=== PATIENT | female | born 1930 | race Caucasian/White ===

== ENCOUNTER 2018-07-12 19:02 | Observation (INO) ==
--- NOTE | 2018-07-12 19:09 | Emergency Department Note ---
ED Disposition Condition on Discharge: Fair - Critical Care Critical Care Time: No <Toña Gasca - Last Filed: 07/12/18 19:56> <Hesham Veras - Last Filed: 07/12/18 21:19> Clinical Impression: DNR (do not resuscitate) Altered mental status Qualifiers: Altered mental status type: unspecified Qualified Code(s): R41.82 - Altered mental status, unspecified Disposition: Admitted as Observation Referrals: Hesham Veras MD [Primary Care Provider] - Attestation: On 07/12/18, the high probability of a clinically significant, sudden or life threatening deterioration of the following system(s) required my full and direct attention, intervention and personal management. The time I documented below is in addition to time spent performing reported procedures but includes the following listed in this critical care notation. Medical Decision Making - Caio Inquiry Pt receiving controlled substance: No Caio was queried for this patient: No - Lab Data Result diagrams: 07/12/18 18:50 07/12/18 18:50 - Radiology Data #1 Image(s): Chest Image Reviewed: Yes I reviewed the patient's radiology image Preliminary Findings: Normal/NAD <MagalismarlonToña - Last Filed: 07/12/18 19:56> - Lab Data Lab results reviewed: Yes: I reviewed the patient's lab results. Result diagrams: 07/12/18 18:50 07/12/18 18:50 - CT Data CT Scan: Head Time Received: 21:[address] Reviewed: Yes: I have viewed the radiologist's interpretation Preliminary Findings: Normal/NAD - ECG Data Tracing #1 I reviewed this ECG and interpreted as documented below: Normal Sinus Rhythm: Yes Ischemic changes: non-specific ST-T wave changes <Hesham Veras - Last Filed: 07/12/18 21:19> Vital Signs: 07/12/18 19:03 07/12/18 19:29 07/12/18 19:50 Temperature 97.5 F L 98.0 F Temperature Source Oral Rectal Pulse Rate [Left Radial] 64 57 L 56 L Respiratory Rate 16 14 17 Blood Pressure [Right Arm] 124/74 125/73 119/71 Blood Pressure Mean [Right Arm] 90 90 87 Blood Pressure Source [Right Arm] Automatic Cuff Blood Pressure Position [Right Arm] Supine 02 Sat by Pulse Oximetry 94 L 100 100 Oxygen Delivery Method Room Air Nasal Cannula Room Air Oxygen Flow Rate (LPM) 2 07/12/18 20:03 07/12/18 20:30 07/12/18 21:00 Temperature Temperature Source Pulse Rate [Left Radial] 53 L 52 L 54 L Respiratory Rate 15 15 15 Blood Pressure [Right Arm] 138/67 137/79 123/57 L Blood Pressure Mean [Right Arm] 90 98 79 Blood Pressure Source [Right Arm] Automatic Cuff Blood Pressure Position [Right Arm] Supine 02 Sat by Pulse Oximetry 100 100 99 Oxygen Delivery Method Nasal Cannula Nasal Cannula Oxygen Flow Rate (LPM) 2 2 - Lab Data Lab Results 07/12/18 18:50: WBC 5.1, RBC 3.95 L, Hgb 11.7 L, Hct 36.3 L, MCV 92.0, MCH 29.7, MCHC 32.3, RDW 14.6, Plt Count 161, MPV 7.0 L, Neut % (Auto) 49.3, Lymph % (Auto) 28.7, [place] % (Auto) 6.9, Eos % (Auto) 14.7 H, Baso % (Auto) 0.4, Neut # (Auto) 2.5, Lymph # (Auto) 1.5, [place] # (Auto) 0.4, Eos # (Auto) 0.8 H, Baso # (Auto) 0.0 07/12/18 18:50: Sodium 139, Potassium 4.5, Chloride 104, Carbon Dioxide 30, Anion Gap 9.5, BUN 20 H, Creatinine 0.66, Estimated Creat Clear 38, Estimated GFR 85, Est GFR ( Amer) 102, Glucose 90, Calcium 8.6, Total Bilirubin 0.4, AST 28, ALT 24, Alkaline Phosphatase 90, Total Creatine Kinase 57, CK-MB (CK-2) 0.5, CK-MB (CK-2) Rel Index 0.9, Troponin I < 0.02, Total Protein 6.6, Albumin 2.9 L, Globulin 3.7 H, Albumin/Globulin Ratio 0.8 L 07/12/18 19:18: Urine Color Yellow, Urine Appearance Clear, Urine pH 7.0, Ur Specific [place] 1.015, Urine Protein Negative, Urine Glucose (UA) Negative, Urine Ketones Negative, Urine Blood Trace-i, Urine Nitrate Negative, Urine Bilirubin Negative, Urine Urobilinogen 1.0, Ur Leukocyte Esterase Negative, Urine RBC 3-5, Urine WBC None, Ur Squamous Epith Cells Occasional, Urine Bacteria Trace 07/12/18 19:18: Urine Opiates Screen Positive H, Urine Methadone Screen Negative, Ur Barbituates Screen Negative, Ur Phencyclidine Scrn Negative, Ur Amphetamines Screen Negative, U Benzodiazepines Scrn Negative, Urine Cocaine Screen Negative, U Marijuana (THC) Screen Negative Orders (Tests/Meds): ED MEDICATIONS Discontinued Medications Generic Name Dose Route Start Last Admin Trade Name Freq PRN Reason Stop Dose Admin Sodium Chloride 1,000 mls @ 999 mls/hr 07/12/18 19:30 07/12/18 20:01 Sod Chlor 0.9% 1000ml Bag IV 07/12/18 20:30 999 mls/hr .[id number] VIANNEY Administration ORDERS Category Date Time Status CT head/brain wo con Stat Cat Scan 07/12/18 19:10 Taken XR chest portable Stat Exams 07/12/18 19:10 Taken Lactic Acid Stat Lab 07/12/18 21:16 Ordered Urinalysis and Microscopic Stat Lab 07/12/18 19:18 Ordered Blood Culture Stat Micro 07/12/18 21:16 Ordered Urine Culture(cathed specimen) Stat Micro 07/12/18 21:16 Ordered ECG Request by /Jackson Stat Y 07/12/18 19:10 Ordered Medical Decision Narrative: Chest x-ray was negative for acute infiltrates. Final CT scan report and labs are pending. I discussed with incoming physician Dr. Veras who is her primary care physician at the skilled nursing, he will follow-up and make a final disposition. (Toña Gasca) Altered Mental Status HPI - History of Present Illness complaint: decreased responsiveness Onset (ago): hour(s) Timing confirmed by: caregiver Severity: moderate Associated symptoms: denies other symptoms <Toña Gasca - Last Filed: 07/12/18 19:56> <Hesham Veras - Last Filed: 07/12/18 21:19> - General Stated Complaint: Unresponsive Time Seen by Provider: 07/12/18 19:06 - History of Present Illness HPI narrative: 87 years old white female with history of dementia, epilepsy, on Keppra and multiple medical problems , she is DNR [facility] resident. July 02 she was positive for UTI started on cephalexin. Today she is lethargic decreased activity and alertness, [facility] was contacted and brought the patient for evaluation. She has no fever vital signs are within normal limits. (Toña Gasca) - Related Data Home Medications Medication Instructions Recorded Confirmed metoprolol tartrate 25 mg tablet 25 mg PO DAILY 10/26/17 07/12/18 thyroid (pork) 30 mg tablet 30 mg PO ONCE 10/26/17 07/12/18 hydrocodone 5 mg-acetaminophen 325 1 tab PO BID tab 11/22/17 07/12/18 mg tablet Memantine HCl [Namenda] 10 mg PO BID 02/25/18 07/12/18 levETIRAcetam [Keppra 500mg tablet] 500 mg PO DAILY 02/25/18 07/12/18 Nystatin [Nystatin Cr 100,000 1 applicatio TOPICAL TID 04/27/18 07/12/18 Units/GM 30GM] acetaminophen 500 mg capsule 500 mg PO Q6H PRN 06/28/18 07/12/18 haloperidol 2 mg tablet 2 mg PO TID tab 06/28/18 07/12/18 lactulose 10 gram/15 mL oral 20 g PO DAILY PRN ml 06/28/18 07/12/18 solution loratadine 10 mg tablet 10 mg PO DAILY 06/28/18 07/12/18 olanzapine 2.5 mg tablet 2.5 mg PO DAILY 06/28/18 07/12/18 polyethylene glycol 3350 17 gram 17 g PO DAILY 06/28/18 07/12/18 oral powder packet cephALEXin [cephALEXin 500mg 500 mg PO BID 07/12/18 07/12/18 capsule] Allergies Allergy/AdvReac Type Severity Reaction Status Date / Time chocolate flavor Allergy Intermediate I-ITCHING Verified 07/12/18 19:30 [From CHOCOLATE (FOOD/DRUG)] phenytoin [From Dilantin] Allergy Mild Verified 07/12/18 19:30 naproxen Allergy Unknown Verified 07/12/18 19:30 Penicillins Allergy Unknown Verified 07/12/18 19:30 From CHOCOLATE (FOOD/DRUG) Allergy Intermediate I-ITCHING Uncoded 06/28/18 14:15 [facility] History I have reviewed the patient's past medical history: Yes (I did review her skilled nursing records.) Medical History: Denies:: Cancer, Diabetes Mellitus Type 1, Diabetes Mellitus Type 2, MRSA Other Surgeries: Yes: Hysterectomy-Total, Other (goider removed) Amputation: No Fractures: Yes - Social History Smoking Status: Never smoker Alcohol Intake: never Substance Use Type: denies use Occupational Status: retired Housing: skilled nursing Family Hx:: Unable to obtain <CamposToña Last Filed: 07/12/18 19:56> ROS Obtained: Yes All systems reviewed & no additional complaints <CamposToña Filed: 07/12/18 19:56> Physical Exam - General General appearance: in no apparent distress, lethargic - Head Head exam: atraumatic, normocephalic, normal inspection - Eye Eye exam: Present: normal appearance, PERRL, EOMI - ENT ENT exam: Present: normal exam, normal oropharynx, mucous membranes moist, TM's normal bilaterally, normal external ear exam - Neck Neck exam: Present: normal inspection, full ROM, trachea midline. Absent: tenderness, meningismus, lymphadenopathy - Chest Chest inspection: Present: normal inspection, symmetric chest wall rise. Absent: tenderness - Respiratory Respiratory exam: Present: normal lung sounds bilaterally. Absent: respiratory distress - Cardiovascular Cardiovascular exam: Present: regular rate, normal rhythm, normal heart sounds. Absent: JVD - Abdominal Exam Abdominal exam: Present: soft, normal bowel sounds. Absent: distention, tenderness, guarding, rebound, rigidity - Extremities Exam Extremities exam: Present: normal inspection, full ROM, normal capillary refill. Absent: tenderness, calf tenderness - Back Exam Back exam: Present: normal inspection. Absent: tenderness, vertebral tenderness - Neurological Exam Neurological exam: Present: CN II-XII intact, motor sensory deficit, reflexes normal - Psychiatric Psychiatric exam: Present: normal affect, normal mood - Skin Skin exam: Present: warm, dry, intact, normal color - Lymphatic Lymphatic Findings: no adenopathy <MagalismarlonToña Filed: 07/12/18 19:56>
[2018-07-12 19:23] LABS: Basophils % 0.4 % (0.1-2.0); Eosinophils # 0.8 K/mm3 (0.0-0.4); Eosinophils % 14.7 % (0.1-12.0); Hematocrit 36.3 % (37.0-47.0); Hemoglobin 11.7 g/dL (12.2-16.2); Lymphocytes # 1.5 K/mm3 (0.7-4.5); Lymphocytes % 28.7 K/mm3 (10-50); Mean Corpuscular HGB Conc 32.3 g/dL (31.8-35.4); Mean Corpuscular Hemoglobin 29.7 pg (27.0-31.2); Monocytes # 0.4 K/mm3 (0.1-1.0); Monocytes % 6.9 % (1.7-9.3); Neutrophils # 2.5 K/mm3 (1.8-7.8); Neutrophils % 49.3 % (37.0-80.0); Platelet Count 161 K/mm3 (142-424); Red Blood Count 3.95 M/mm3 (4.20-5.40); Red Cell Distribution Width 14.6 % (11.5-17.5); White Blood Count 5.1 K/mm3 (4.8-10.8)
[2018-07-12 19:52] LABS: Alanine Aminotransferase 24 U/L (12-78); Albumin Level 2.9 gm/dL (3.4-5.0); Albumin/Globulin Ratio 0.8 (1.1-1.8); Alkaline Phosphatase 90 U/L (46-116); Anion Gap 9.5 mEq/L (5-15); Bilirubin,Total 0.4 mg/dL (0.2-1.0); Blood Urea Nitrogen 20 mg/dL (7-18); Calcium 8.6 mg/dL (8.5-10.1); Carbon Dioxide 30 mmol/L (21.0-32.0); Chloride 104 mmol/L (98-107); Creatine Kinase 57 U/L (26-192); Globulin 3.7 gm/dl (1.3-3.2); Glucose 90 mg/dL (74-106); Sodium 139 mmol/L (136-145); Total Protein,Serum 6.6 gm/dL (6.4-8.2)
[2018-07-12 19:54] LABS: Potassium 4.5 mmoL/L (3.5-5.1)
[2018-07-12 19:55] LABS: Aspartate Amino Transferase 28 U/L (15-37)
[2018-07-12 20:07] LABS: Microscopic, Urine URINE MICROSCOPIC (MICROSCOPIC)
[2018-07-12 20:10] LABS: Appearance,Urine CLEAR (Clear); Bilirubin,Urine Negative (Negative); Blood, Urine TRACE-I (Negative); Color,Urine YELLOW (Yellow); Glucose,Urine (UA) Negative (Negative); Ketones,Urine Negative (Negative); Leukocyte Esterase,Urine Negative (Negative); Protein,Urine Negative (Negative); Specific Gravity, Urine 1.015 (1.005-1.030)
[2018-07-12 20:17] LABS: Amphetamine/Metha Screen,Urine Negative ng/mL (<1000); Barbiturates Screen,Urine Negative ng/mL (<200); Benzodiazepines Screen,Urine Negative ng/mL (<200); Cannabinoid Screen,Urine Negative ng/mL (<50); Cocaine Screen,Urine Negative ng/mL (<300); Methadone Screen,Urine Negative ng/mL (<300); Opiate Screen,Urine Positive ng/mL (<300); Phencyclidine Screen,Urine Negative ng/mL (<25)
[2018-07-12 20:25] LABS: Bacteria,Urine Trace /lpf; Squamous Epithelial Cell,Urine Occasional #/hpf (0-5)
[2018-07-12 22:00] LABS: T4 (Thyroxine) 6.3 ug/dl (4.7-13.3); Thyroid Stimulating Hormone 3.96 uIU/ml (0.358-3.740)
[2018-07-13 06:59] LABS: Basophils % 0.8 % (0.1-2.0); Eosinophils # 0.7 K/mm3 (0.0-0.4); Eosinophils % 15.3 % (0.1-12.0); Hematocrit 34.8 % (37.0-47.0); Hemoglobin 11.2 g/dL (12.2-16.2); Lymphocytes # 1.2 K/mm3 (0.7-4.5); Lymphocytes % 25.9 K/mm3 (10-50); Mean Corpuscular Hemoglobin 29.8 pg (27.0-31.2); Mean Platelet Volume 6.5 fl (7.4-10.4); Monocytes # 0.3 K/mm3 (0.1-1.0); Monocytes % 6.4 % (1.7-9.3); Neutrophils # 2.5 K/mm3 (1.8-7.8); Neutrophils % 51.7 % (37.0-80.0); Platelet Count 139 K/mm3 (142-424); Red Blood Count 3.74 M/mm3 (4.20-5.40); Red Cell Distribution Width 14.7 % (11.5-17.5); White Blood Count 4.8 K/mm3 (4.8-10.8)
[2018-07-13 07:08] LABS: Anion Gap 8.9 mEq/L (5-15); Calcium 8.2 mg/dL (8.5-10.1); Potassium 3.9 mmoL/L (3.5-5.1)
--- NOTE | 2018-07-13 07:33 | Pharmacy Consult Notes ---
[facility] Pharmacy VTE Monitoring - Patient Demographics Admission date: 07/12/18 Report Date: 07/13/18 Time: 07:33 Allergies/Adverse Reactions: Patient Allergies chocolate flavor [From CHOCOLATE (FOOD/DRUG)] Allergy (Intermediate, Verified 07/12/18 19:30) I-ITCHING phenytoin [From Dilantin] Allergy (Mild, Verified 07/13/18 07:28) UNKNOWN naproxen Allergy (Unknown, Verified 07/13/18 07:28) UNKNOWN Penicillins Allergy (Unknown, Verified 07/13/18 07:28) UNKNOWN Height: 1.7 m Weight: 55.423 kg Patient Problems: Current Active Problems Altered mental status (Acute) DNR (do not resuscitate) (Acute) - VTE Risk Labs: VTE Related Lab Results Hgb 11.2 g/dL (12.2-16.2) L 07/13/18 06:40 Hct 34.8 % (37.0-47.0) L 07/13/18 06:40 Plt Count 139 K/mm3 (142-424) L 07/13/18 06:40 BUN 24 mg/dL (7-18) H 07/13/18 06:40 Creatinine 0.65 mg/dL (0.55-1.02) 07/13/18 06:40 Estimated Creat Clear 34 mL/min (0-300) 07/13/18 06:40 VTE Score: 4 VTE Risk Level: Low Risk - Prophylaxis VTE Prophylaxis Ordered?: Yes Types of VTE Prophylaxis: TEDS Knee High Location of Applied Device: Bilateral Lower Extremeties - VTE Diagnosis Confirmed Treatment or plan recommended: Continue Current Treatment
--- NOTE | 2018-07-13 13:46 | H&P/Discharge Summary ---
General - General Admission date:: 07/12/18 Discharge date: 07/13/18 *Admission Date: 07/12/18 *Chief complaint: change in mental status *History of present illness: this elderly wf was sent from [facility] with altered mental status and was seen in the ed with no def dx but was felt to be multifactorial and possibly medication related - no fever or trauma and no evid of focal cva or mi - after discussion with family and review of tests she was admitted - 7 years old white female with history of dementia, epilepsy, on Keppra and multiple medical problems , she is DNR [facility] resident. July 02 she was positive for UTI started on cephalexin. Today she is lethargic decreased activity and alertness, [facility] was contacted and brought the patient for evaluation. She has no fever vital signs are within normal limits. (Toña Gasca) [facility] History I have reviewed the patient's past medical history: Yes Medical History: Denies:: Cancer, Diabetes Mellitus Type 1, Diabetes Mellitus Type 2, MRSA Other Medical History: Reports: Cataracts Other Surgeries: Yes: Hysterectomy-Total, Other (goider removed) Amputation: No Fractures: Yes - *Social History Smoking Status: Never smoker Alcohol Intake: never Substance Use Type: denies use Occupational Status: retired Housing: [facility] Household Members: none - Psychiatric History Expresses thoughts of harming self/others: None Suicide Plan Description: No Plan *Family Hx:: Unable to obtain Review of Systems - Review of Systems Review of systems:: pertinent systems reviewed and negative unless documented below - Constitutional Reports malaise, Denies fever(s) - Eyes Denies change in vision - ENT Denies tongue swelling - *Cardiovascular Denies chest pain at rest - *Respiratory Denies cough - *Gastrointestinal Denies abdominal pain, Denies vomiting - *Genitourinary Denies blood in urine - *Musculoskeletal Reports joint pain, Reports neck pain - Integumentary/Breasts Denies rash - *Neurologic Reports confusion, Denies seizure-like activity - Psychiatric Reports confusion Exam Vital signs and Labs for Last 24 Hours: Temp Pulse Resp BP Pulse Ox 97.6 F 57 L 12 122/72 96 07/13/18 07:44 07/13/18 07:44 07/13/18 07:44 07/13/18 07:44 07/13/18 07:44 Laboratory Results - last 24 hr 07/12/18 18:50: WBC 5.1, RBC 3.95 L, Hgb 11.7 L, Hct 36.3 L, MCV 92.0, MCH 29.7, MCHC 32.3, RDW 14.6, Plt Count 161, MPV 7.0 L, Neut % (Auto) 49.3, Lymph % (Auto) 28.7, [place] % (Auto) 6.9, Eos % (Auto) 14.7 H, Baso % (Auto) 0.4, Neut # (Auto) 2.5, Lymph # (Auto) 1.5, [place] # (Auto) 0.4, Eos # (Auto) 0.8 H, Baso # (Auto) 0.0 07/12/18 18:50: Sodium 139, Potassium 4.5, Chloride 104, Carbon Dioxide 30, Anion Gap 9.5, BUN 20 H, Creatinine 0.66, Estimated Creat Clear 38, Estimated GFR 85, Est GFR ( Amer) 102, Glucose 90, Calcium 8.6, Total Bilirubin 0.4, AST 28, ALT 24, Alkaline Phosphatase 90, Total Creatine Kinase 57, CK-MB (CK-2) 0.5, CK-MB (CK-2) Rel Index 0.9, Troponin I < 0.02, Total Protein 6.6, Albumin 2.9 L, Globulin 3.7 H, Albumin/Globulin Ratio 0.8 L 07/12/18 19:15: TSH 3.96 H, Thyroxine (T4) 6.3 07/12/18 19:18: Urine Color Yellow, Urine Appearance Clear, Urine pH 7.0, Ur Specific [place] 1.015, Urine Protein Negative, Urine Glucose (UA) Negative, Urine Ketones Negative, Urine Blood Trace-i, Urine Nitrate Negative, Urine Bilirubin Negative, Urine Urobilinogen 1.0, Ur Leukocyte Esterase Negative, Urine RBC 3-5, Urine WBC None, Ur Squamous Epith Cells Occasional, Urine Bacteria Trace 07/12/18 19:18: Urine Opiates Screen Positive H, Urine Methadone Screen Negative, Ur Barbituates Screen Negative, Ur Phencyclidine Scrn Negative, Ur Amphetamines Screen Negative, U Benzodiazepines Scrn Negative, Urine Cocaine Screen Negative, U Marijuana (THC) Screen Negative 07/12/18 21:27: Lactate 0.7 07/13/18 00:30: Troponin I < 0.02 07/13/18 03:40: Troponin I < 0.02 07/13/18 06:40: WBC 4.8, RBC 3.74 L, Hgb 11.2 L, Hct 34.8 L, MCV 93.0, MCH 29.8, MCHC 32.0, RDW 14.7, Plt Count 139 L, MPV 6.5 L, Neut % (Auto) 51.7, Lymph % (Auto) 25.9, [place] % (Auto) 6.4, Eos % (Auto) 15.3 H, Baso % (Auto) 0.8, Neut # (Auto) 2.5, Lymph # (Auto) 1.2, [place] # (Auto) 0.3, Eos # (Auto) 0.7 H, Baso # (Auto) 0.0 07/13/18 06:40: Sodium 140, Potassium 3.9, Chloride 106, Carbon Dioxide 29, Anion Gap 8.9, BUN 24 H, Creatinine 0.65, Estimated Creat Clear 34, Estimated GFR 86, Est GFR ( Amer) 104, Glucose 81, Calcium 8.2 L I & O for Last 24 hours: Intake & Output 07/11/18 07/12/18 07/13/18 07/14/18 11:59 11:59 11:59 11:59 Intake Total 240 / 240 Output Total 300 / 300 Balance -60 / -60 Weight 122 lb 3 oz - Constitutional no acute distress, thin, somnolent - *Routine HEENT Exam Head: Present: normocephalic Eye: Present: EOMI, PERRL ENT: Present: mucous membranes dry - *Routine Neck Exam Present: trachea midline. Absent: JVD - *Routine Respiratory Exam Present: decreased breath sounds - *Routine Cardiovascular Exam Present: RRR, murmur - *Routine Abdominal Exam Present: soft - *Routine Extremities Exam Absent: calf tenderness - *Routine Skin Exam Present: intact - *Routine Neurological Exam Present: alert, CN II-XII intact - Routine Psychiatric Exam Present: unable to assess Hospital Course Hospital Course: pt improved with ivf and holding sedating meds and was at baseline this am with stable labs and will plan on d/c and hols certain meds which may have sedated pt Results Labs on day of discharge: Labs from last 24 hours 07/13/18 07/13/18 07/13/18 06:40 06:40 03:40 WBC 4.8 RBC 3.74 L Hgb 11.2 L Hct 34.8 L MCV 93.0 MCH 29.8 MCHC 32.0 RDW 14.7 Plt Count 139 L MPV 6.5 L Neut % (Auto) 51.7 Lymph % (Auto) 25.9 [place] % (Auto) 6.4 Eos % (Auto) 15.3 H Baso % (Auto) 0.8 Neut # (Auto) 2.5 Lymph # (Auto) 1.2 [place] # (Auto) 0.3 Eos # (Auto) 0.7 H Baso # (Auto) 0.0 Sodium 140 Potassium 3.9 Chloride 106 Carbon Dioxide 29 Anion Gap 8.9 BUN 24 H Creatinine 0.65 Estimated Creat Clear 34 Estimated GFR 86 Est GFR ( Amer) 104 Glucose 81 Lactate Calcium 8.2 L Total Bilirubin AST ALT Alkaline Phosphatase Total Creatine Kinase CK-MB (CK-2) CK-MB (CK-2) Rel Index Troponin I < 0.02 Total Protein Albumin Globulin Albumin/Globulin Ratio TSH Thyroxine (T4) Urine Color Urine Appearance Urine pH Ur Specific [place] Urine Protein Urine Glucose (UA) Urine Ketones Urine Blood Urine Nitrate Urine Bilirubin Urine Urobilinogen Ur Leukocyte Esterase Urine RBC Urine WBC Ur Squamous Epith Cells Urine Bacteria Urine Opiates Screen Urine Methadone Screen Ur Barbituates Screen Ur Phencyclidine Scrn Ur Amphetamines Screen U Benzodiazepines Scrn Urine Cocaine Screen U Marijuana (THC) Screen 07/13/18 07/12/18 07/12/18 00:30 21:27 19:18 WBC RBC Hgb Hct MCV MCH MCHC RDW Plt Count MPV Neut % (Auto) Lymph % (Auto) [place] % (Auto) Eos % (Auto) Baso % (Auto) Neut # (Auto) Lymph # (Auto) [place] # (Auto) Eos # (Auto) Baso # (Auto) Sodium Potassium Chloride Carbon Dioxide Anion Gap BUN Creatinine Estimated Creat Clear Estimated GFR Est GFR ( Amer) Glucose Lactate 0.7 Calcium Total Bilirubin AST ALT Alkaline Phosphatase Total Creatine Kinase CK-MB (CK-2) CK-MB (CK-2) Rel Index Troponin I < 0.02 Total Protein Albumin Globulin Albumin/Globulin Ratio TSH Thyroxine (T4) Urine Color Urine Appearance Urine pH Ur Specific [place] Urine Protein Urine Glucose (UA) Urine Ketones Urine Blood Urine Nitrate Urine Bilirubin Urine Urobilinogen Ur Leukocyte Esterase Urine RBC Urine WBC Ur Squamous Epith Cells Urine Bacteria Urine Opiates Screen Positive H Urine Methadone Screen Negative Ur Barbituates Screen Negative Ur Phencyclidine Scrn Negative Ur Amphetamines Screen Negative U Benzodiazepines Scrn Negative Urine Cocaine Screen Negative U Marijuana (THC) Screen Negative 07/12/18 07/12/18 07/12/18 19:18 19:15 18:50 WBC RBC Hgb Hct MCV MCH MCHC RDW Plt Count MPV Neut % (Auto) Lymph % (Auto) [place] % (Auto) Eos % (Auto) Baso % (Auto) Neut # (Auto) Lymph # (Auto) [place] # (Auto) Eos # (Auto) Baso # (Auto) Sodium 139 Potassium 4.5 Chloride 104 Carbon Dioxide 30 Anion Gap 9.5 BUN 20 H Creatinine 0.66 Estimated Creat Clear 38 Estimated GFR 85 Est GFR ( Amer) 102 Glucose 90 Lactate Calcium 8.6 Total Bilirubin 0.4 AST 28 ALT 24 Alkaline Phosphatase 90 Total Creatine Kinase 57 CK-MB (CK-2) 0.5 CK-MB (CK-2) Rel Index 0.9 Troponin I < 0.02 Total Protein 6.6 Albumin 2.9 L Globulin 3.7 H Albumin/Globulin Ratio 0.8 L TSH 3.96 H Thyroxine (T4) 6.3 Urine Color Yellow Urine Appearance Clear Urine pH 7.0 Ur Specific [place] 1.015 Urine Protein Negative Urine Glucose (UA) Negative Urine Ketones Negative Urine Blood Trace-i Urine Nitrate Negative Urine Bilirubin Negative Urine Urobilinogen 1.0 Ur Leukocyte Esterase Negative Urine RBC 3-5 Urine WBC None Ur Squamous Epith Cells Occasional Urine Bacteria Trace Urine Opiates Screen Urine Methadone Screen Ur Barbituates Screen Ur Phencyclidine Scrn Ur Amphetamines Screen U Benzodiazepines Scrn Urine Cocaine Screen U Marijuana (THC) Screen 07/12/18 18:50 WBC 5.1 RBC 3.95 L Hgb 11.7 L Hct 36.3 L MCV 92.0 MCH 29.7 MCHC 32.3 RDW 14.6 Plt Count 161 MPV 7.0 L Neut % (Auto) 49.3 Lymph % (Auto) 28.7 [place] % (Auto) 6.9 Eos % (Auto) 14.7 H Baso % (Auto) 0.4 Neut # (Auto) 2.5 Lymph # (Auto) 1.5 [place] # (Auto) 0.4 Eos # (Auto) 0.8 H Baso # (Auto) 0.0 Sodium Potassium Chloride Carbon Dioxide Anion Gap BUN Creatinine Estimated Creat Clear Estimated GFR Est GFR ( Amer) Glucose Lactate Calcium Total Bilirubin AST ALT Alkaline Phosphatase Total Creatine Kinase CK-MB (CK-2) CK-MB (CK-2) Rel Index Troponin I Total Protein Albumin Globulin Albumin/Globulin Ratio TSH Thyroxine (T4) Urine Color Urine Appearance Urine pH Ur Specific [place] Urine Protein Urine Glucose (UA) Urine Ketones Urine Blood Urine Nitrate Urine Bilirubin Urine Urobilinogen Ur Leukocyte Esterase Urine RBC Urine WBC Ur Squamous Epith Cells Urine Bacteria Urine Opiates Screen Urine Methadone Screen Ur Barbituates Screen Ur Phencyclidine Scrn Ur Amphetamines Screen U Benzodiazepines Scrn Urine Cocaine Screen U Marijuana (THC) Screen DS: Diagnosis - Discharge Diagnosis (1) Altered mental status Status: Acute (2) Low body mass index (BMI) Status: Acute Discharge Medications - Medications for Discharge Home Medication List at Discharge: Continue metoprolol tartrate 25 mg tablet 25 mg PO DAILY hydrocodone 5 mg-acetaminophen 325 mg tablet 1 tab PO BID tab lactulose 10 gram/15 mL oral solution 20 g PO DAILY PRN ml PRN Reason: constipation polyethylene glycol 3350 17 gram oral powder packet 17 g PO DAILY acetaminophen 500 mg capsule 1,000 mg PO Q6HP PRN PRN Reason: PAIN loratadine 10 mg tablet 10 mg PO DAILY Memantine HCl [Namenda] 10 mg PO BID levETIRAcetam [Keppra 500mg tablet] 500 mg PO DAILY Thyroid,Pork [[place] Thyroid] 45 mg PO DAILY Albuterol Sulfate [Albuterol 0.083% 2.5mg/3mL neb] 0.083 neb IH Q8 PRN PRN Reason: Wheezing Nystatin [Nystatin Cr 100,000 Units/GM 30GM] 1 applicatio TOPICAL BID Discontinued olanzapine 2.5 mg tablet 2.5 mg PO DAILY haloperidol 2 mg tablet 2 mg PO TID tab Disposition Disposition: Xfer SNF
== END 2018-07-13 15:09 ==
LOC: 2ND 19:02 → ER 19:02 → 2ND 21:56
PROVIDERS: ADMIT Emergency Medicine; ATTEND Emergency Medicine
CPT/HCPCS: 36415; 70450; 71010; 71045; 80048; 80053; 80305; 81001; 82550; 82553; 83605; 84436; 84443; 84484; 85025; 87040; 93005; 96365; 99285; G0378